=== PATIENT | female | born 1950 | race Caucasian/White ===

== ENCOUNTER → 2017-02-18 | Outpatient (CLI) | payer MEDICARE ==
[~2017-02-18] MED LIST: ALBU18HF INH; ASPI-496 PO; BIOT5TAB PO; BUDE10.2 INH; CHOL500014 PO; CITA20TA5 PO; ESTR2TAB PO; FEXO1TAB29 PO; LANS15CA45 PO; LEVO150T PO; METO50TA82 PO; MONT10TA9 PO; OLME1TAB5 PO
== END | disposition home or self-care (01) ==
LOC: CFH 08:25
PROVIDERS: ATTEND Internal Medicine Cardiovascular Disease
DX: R06.02 Shortness of breath (principal)
CPT/HCPCS: 78452; 93017; A9502

== ENCOUNTER → 2018-01-04 | Outpatient (CLI) | payer MEDICARE ==
[~2018-01-04] MED LIST changes: -CHOL500014 PO; +CHOL500045 PO; -LANS15CA45 PO; +LANS15CA60 PO; +OLME1TAB28 PO; -OLME1TAB5 PO
== END | disposition home or self-care (01) ==
LOC: CFH 12:40
PROVIDERS: ATTEND Family Medicine
DX: Z13.820 Encounter for screening for osteoporosis (principal); N95.9 Unspecified menopausal and perimenopausal disorder
CPT/HCPCS: 77080

== ENCOUNTER 2020-01-01 16:49 | Inpatient (IN) | payer MEDICARE ==
[~2020-01-01] VITALS: Ht 188 cm; Wt 98.2 kg
[2020-01-01] MEDS: SODIUM CHLORIDE 0.9% 1,000 ML IV SCH (00:35)
[~2020-01-01 16:49] MED LIST changes: -CITA20TA5 PO; +CITA20TA6 PO; +MONT10TA11 PO; -MONT10TA9 PO
[2020-01-01] MEDS ORDERED: methylPREDNISolone SOD SUCC 125 MG/2 ML IVPush STA (17:14)
[2020-01-01] MEDS ORDERED: ADENOSINE 6 MG/2 ML ONE ×3 (17:26→21:12)
[2020-01-01] MEDS ORDERED: ALBUTEROL 0.5%, 20ML NPPB SCH ×2 (17:30→18:30)
[2020-01-01] MEDS ORDERED: IPRATROPIUM 0.5 MG/2.5 ML INHA NPPB SCH (17:30)
--- NOTE | 2020-01-01 17:30 | NUR ---
PIV STARTED, LABS DRAWN.
--- NOTE | 2020-01-01 17:35 | NUR ---
THIS IS A 69 YO F W/ C/O SOBX6 WEEKS. PT PRESENTS IN SVT. 6 MG ADENOSINE GIVEN PER PHYSICIAN VERBAL ORDER. PT NOW SINUS TACH W/ A HR OF 105. PT RESPONDED WELL TO MEDS. PT CONNECTED TO ALL MONITORING. PT STILL SOB, RESP TREATMENT TO BE GIVEN. VS STABLE AT THIS TIME. NADN.
[2020-01-01] MEDS ORDERED: methylPREDNISolone SOD SUCC 125 MG/2 ML ONE (17:39)
[2020-01-01] MEDS ORDERED: MAGNESIUM SULFATE PMX 2GM/50ML 50 ML ONE (17:40)
[2020-01-01 17:46] LABS: BASOPHILS # (AUTO) 0.07 x10^3/uL (0-0.1); BASOPHILS % (AUTO) 1 % (0-1); EOSINOPHILS # (AUTO) 0.86 x10^3/uL (0-0.4); EOSINOPHILS % (AUTO) 9 % (1-7); LYMPHOCYTES # (AUTO) 1.36 x10^3/uL (1-3.4); LYMPHOCYTES % (AUTO) 14 % (22-44); MD NO; MEAN CORPUSCULAR HEMOGLOBIN 31.6 pg (27.0-34.8); MEAN CORPUSCULAR HGB CONC 33.8 g/dL (32.4-35.8); MEAN CORPUSCULAR VOLUME 93.6 fL (80-100); MEAN PLATELET VOLUME 9.3 fL (7.4-10.4); MONOCYTES # (AUTO) 0.76 x10^3/uL (0.2-0.8); MONOCYTES % (AUTO) 8 % (2-9); NEUTROPHILS # (AUTO) 6.87 x10^3/uL (1.8-6.8); NEUTROPHILS % (AUTO) 69 % (42-75); PLATELET COUNT 217 x10^3/uL (130-400); RED BLOOD COUNT 4.43 x10^6/uL (3.82-5.3)
[2020-01-01] MEDS ORDERED: ALBUTEROL SULFATE 2.5 MG/3 ML ONE (17:57)
[2020-01-01 17:58] LABS: ALANINE AMINOTRANSFERASE 48 U/L (12-78); ALBUMIN 3.5 g/dL (3.4-5.0); ANION GAP 8 mmol/L (5-15); CALCIUM 9.6 mg/dL (8.5-10.1); CHLORIDE 105 mmol/L (98-107); CREATININE 1.26 mg/dL (0.55-1.02)
[2020-01-01] MEDS ORDERED: MAGNESIUM SULFATE PMX 2GM/50ML 50 ML IV ONE (18:00)
[2020-01-01] MEDS ORDERED: ADENOSINE 6 MG/2 ML IVPush ONE ×2 (18:00→21:30)
[2020-01-01 18:03] LABS: ALKALINE PHOSPHATASE 95 U/L (45-117); BILIRUBIN,TOTAL 0.4 mg/dL (0.2-1.0); TOTAL PROTEIN 7.7 g/dL (6.4-8.2); TROPONIN I < 0.015 ng/mL (0.000-0.045)
--- NOTE | 2020-01-01 18:06 | NUR ---
CHRIS REQUESTED FROM PHARMACY.
--- NOTE | 2020-01-01 18:18 | NUR ---
EKG DONE BY VIRAL
--- NOTE | 2020-01-01 18:18 | NUR ---
ALBUTEROL BREATHING TX GIVEN.
--- NOTE | 2020-01-01 18:18 | NUR ---
SIMON GAINES MANUAL BP @ [phone]/76
[2020-01-01] MEDS ORDERED: VALS1TAB30 PO (18:25)
[2020-01-01] MEDS ORDERED: SODIUM CHLORIDE FLUSH 10ML SYR IVF ONE (18:30)
[2020-01-01] MEDS ORDERED: ALBUTEROL 0.5%, 20ML NPPBCONT STA (18:46)
[2020-01-01] MEDS ORDERED: ALBUTEROL 0.5%, 20ML ONE (18:48)
--- NOTE | 2020-01-01 18:50 | NUR ---
TELEPHONE CALL TO RESPIRATORY. STATES THEY WILL COME DO CONTINOUS RESP TREATMENT.
--- NOTE | 2020-01-01 19:01 | NUR ---
REPORT GIVEN TO ANDREW GRAHAM.
[2020-01-01] MEDS ORDERED: POLYETHYLENE GLYCOL 17 GM PACKET PO PRN (21:00)
[2020-01-01] MEDS ORDERED: GUAIFENESIN/DM 200-20MG, 10ML UDC PO PRN (21:00)
[2020-01-01] MEDS ORDERED: hydrALAzine 20 MG/ML, 1ML IVPush PRN (21:00)
[2020-01-01] MEDS ORDERED: BISACODYL 10 MG SUPP PR PRN (21:00)
[2020-01-01] MEDS ORDERED: ONDANSETRON ODT 4 MG PO PRN (21:00)
[2020-01-01] MEDS ORDERED: ACETAMINOPHEN 325 MG TABLET PO PRN (21:00)
--- NOTE | 2020-01-01 21:30 | NUR ---
CT DELAY, PT TACHY
[2020-01-01] MEDS ORDERED: LABETALOL 5MG/ML, 20ML IVPush STA (21:31)
[2020-01-01] MEDS ORDERED: DILTIAZEM 5 MG/ML, 5ML ONE (21:39)
[2020-01-01] MEDS ORDERED: DILTIAZEM 5 MG/ML, 5ML IVPush ONE (22:00)
--- NOTE | 2020-01-01 22:05 | NUR ---
PT WENT INTO SVT IN THE 170+ DR SEVILLA GAVE 12MG ADENOSINE, PT CONVERTED TO 113 SINUS TACH. PT 10 MIN LATER WENT BACK UP TO 180'S, DR PUGH WAS CALLED, HE GAVE VERBAL ORDER FOR 20MG CARDIZEM. PT WENT INTO A NSR AT 99 AFTER CARDIZEM.
[2020-01-01] MEDS ORDERED: OMNIPAQUE 350 MG/ML, 100ML BOTTLE ONE (22:41)
[2020-01-01] MEDS: LORATADINE/PSE 5/120MG TAB.ER.12H PO SCH (23:00)
--- NOTE | 2020-01-01 23:17 | NUR ---
SIMON DID 2 EKG'S BEFORE AND AFTER 12 OF ADENOSINE & TRANSPORTED TO CT AND THEN 306
[2020-01-01 23:57] LABS: TROPONIN I < 0.015 ng/mL (0.000-0.045)
[2020-01-02] MEDS: ALBUTEROL HFA 90 MCG/SPRAY INH SCH ×6 (00:29→20:22)
[2020-01-02] MEDS: DOXYCYCLINE 100 MG in DEXTROSE 5% 250 ML IV SCH ×3 (00:31→20:23)
[2020-01-02] MEDS: HEPARIN 5,000 UNITS/ML, 1ML SQ SCH ×3 (00:31→17:23)
[2020-01-02] MEDS: methylPREDNISolone SOD SUCC 125 MG/2 ML IVPush SCH ×5 (00:31→23:16)
[2020-01-02] MEDS: MONTELUKAST 10 MG TABLET PO SCH ×2 (00:32→20:22)
[2020-01-02] MEDS: FAMOTIDINE 20 MG TABLET PO SCH ×2 (00:32→09:39)
[2020-01-02] MEDS: METOPROLOL TARTRATE 50 MG TAB PO SCH ×2 (00:32→20:22)
[2020-01-02 00:45] VITALS: BP 131/77
[2020-01-02 02:00] VITALS: BP 131/77
[2020-01-02 05:59] LABS: CALCIUM 9.1 mg/dL (8.5-10.1); CHLORIDE 106 mmol/L (98-107)
[2020-01-02 06:01] LABS: BASOPHILS # (AUTO) 0.01 x10^3/uL (0-0.1); BASOPHILS % (AUTO) 0 % (0-1); EOSINOPHILS # (AUTO) 0.01 x10^3/uL (0-0.4); EOSINOPHILS % (AUTO) 0 % (1-7); LYMPHOCYTES # (AUTO) 0.58 x10^3/uL (1-3.4); LYMPHOCYTES % (AUTO) 7 % (22-44); MD NO; MEAN CORPUSCULAR HEMOGLOBIN 31.9 pg (27.0-34.8); MEAN CORPUSCULAR HGB CONC 33.7 g/dL (32.4-35.8); MEAN CORPUSCULAR VOLUME 94.7 fL (80-100); MEAN PLATELET VOLUME 9.4 fL (7.4-10.4); MONOCYTES # (AUTO) 0.06 x10^3/uL (0.2-0.8); MONOCYTES % (AUTO) 1 % (2-9); NEUTROPHILS # (AUTO) 7.29 x10^3/uL (1.8-6.8); NEUTROPHILS % (AUTO) 92 % (42-75); PLATELET COUNT 196 x10^3/uL (130-400); RED BLOOD COUNT 3.91 x10^6/uL (3.82-5.3); RED CELL DISTRIBUTION WIDTH 15.1 % (9.6-15.2)
[2020-01-02 06:07] LABS: ANION GAP 9 mmol/L (5-15); CREATININE 1.44 mg/dL (0.55-1.02); TROPONIN I < 0.015 ng/mL (0.000-0.045)
[2020-01-02] MEDS: LEVOTHYROXINE 175 MCG TABLET PO SCH (06:23)
[2020-01-02 08:08] VITALS: BP 145/82
[2020-01-02] MEDS: TEMPLATE NON-FORMULARY MED. (Biotin** 5 MG) HOMEMEDPO SCH (09:00)
[2020-01-02] MEDS ORDERED: LEVOTHYROXINE 125 MCG TABLET ONE (09:18)
[2020-01-02] MEDS ORDERED: LEVOTHYROXINE 25 MCG TABLET ONE (09:18)
[2020-01-02] MEDS: CITALOPRAM 10 MG TABLET PO SCH (09:37)
[2020-01-02] MEDS: ASPIRIN 81 MG TABLET EC PO SCH (09:39)
[2020-01-02] MEDS: VALSARTAN 320 MG TABLET PO SCH (09:39)
[2020-01-02] MEDS: CHOLECALCIFEROL 5,000u TAB PO SCH (09:39)
[2020-01-02] MEDS: LORATADINE/PSE 5/120MG TAB.ER.12H PO SCH ×2 (09:39→20:22)
[2020-01-02] MEDS: SENNA/DOCUSATE TABLET PO SCH (09:39)
[2020-01-02] MEDS: HYDROCHLOROTHIAZIDE 25 MG TABLET PO SCH (09:39)
[2020-01-02] MEDS: ESTRADIOL 2 MG TABLET PO SCH (09:39)
[2020-01-02] MEDS: FLUTICASONE/VILANTEROL 100-25MCG/INH INH SCH (09:54)
[2020-01-02] MEDS: SODIUM CHLORIDE 0.9% 1,000 ML IV SCH (09:56)
[2020-01-02 13:21] VITALS: BP 120/82
[2020-01-02 20:31] VITALS: BP 139/87
[2020-01-02] MEDS: LORazepam 0.5MG TABLET PO PRN (23:16)
[2020-01-03 00:57] VITALS: BP 148/85
[2020-01-03] MEDS: HEPARIN 5,000 UNITS/ML, 1ML SQ SCH ×3 (01:39→17:49)
[2020-01-03 03:51] LABS: ANION GAP 7 mmol/L (5-15); CALCIUM 9.1 mg/dL (8.5-10.1); CHLORIDE 106 mmol/L (98-107)
[2020-01-03 03:58] LABS: MEAN CORPUSCULAR HEMOGLOBIN 31.7 pg (27.0-34.8); MEAN CORPUSCULAR VOLUME 96.1 fL (80-100); MEAN PLATELET VOLUME 8.9 fL (7.4-10.4); PLATELET COUNT 203 x10^3/uL (130-400); RED BLOOD COUNT 3.86 x10^6/uL (3.82-5.3); RED CELL DISTRIBUTION WIDTH 15.5 % (9.6-15.2)
[2020-01-03 04:00] LABS: ALANINE AMINOTRANSFERASE 45 U/L (12-78); ALKALINE PHOSPHATASE 75 U/L (45-117); BILIRUBIN,TOTAL 0.5 mg/dL (0.2-1.0); CREATININE 1.17 mg/dL (0.55-1.02); TOTAL PROTEIN 6.8 g/dL (6.4-8.2)
[2020-01-03 04:15] LABS: BASOPHILS # (AUTO) 0.05 x10^3/uL (0-0.1); BASOPHILS % (AUTO) 0 % (0-1); EOSINOPHILS % (AUTO) 0 % (1-7); LYMPHOCYTES # (AUTO) 0.69 x10^3/uL (1-3.4); LYMPHOCYTES % (AUTO) 5 % (22-44); MD SCAN; MONOCYTES # (AUTO) 0.29 x10^3/uL (0.2-0.8); MONOCYTES % (AUTO) 2 % (2-9); NEUTROPHILS # (AUTO) 12.44 x10^3/uL (1.8-6.8); NEUTROPHILS % (AUTO) 92 % (42-75)
[2020-01-03] MEDS: ALBUTEROL HFA 90 MCG/SPRAY INH SCH ×6 (04:30→22:30)
[2020-01-03] MEDS: LEVOTHYROXINE 175 MCG TABLET PO SCH (05:59)
[2020-01-03] MEDS: methylPREDNISolone SOD SUCC 125 MG/2 ML IVPush SCH ×3 (05:59→17:48)
[2020-01-03 07:56] VITALS: BP 133/81
[2020-01-03] MEDS ORDERED: FAMOTIDINE 20 MG TABLET PO SCH (09:00)
[2020-01-03] MEDS: ESTRADIOL 2 MG TABLET PO SCH (09:01)
[2020-01-03] MEDS: SENNA/DOCUSATE TABLET PO SCH (09:01)
[2020-01-03] MEDS: CITALOPRAM 10 MG TABLET PO SCH (09:01)
[2020-01-03] MEDS: HYDROCHLOROTHIAZIDE 25 MG TABLET PO SCH (09:01)
[2020-01-03] MEDS: LORATADINE/PSE 5/120MG TAB.ER.12H PO SCH ×2 (09:02→20:01)
[2020-01-03] MEDS: CHOLECALCIFEROL 5,000u TAB PO SCH (09:02)
[2020-01-03] MEDS: ASPIRIN 81 MG TABLET EC PO SCH (09:02)
[2020-01-03] MEDS: VALSARTAN 320 MG TABLET PO SCH (09:02)
[2020-01-03] MEDS: TEMPLATE NON-FORMULARY MED. (Biotin** 5 MG) HOMEMEDPO SCH (09:07)
[2020-01-03] MEDS: FLUTICASONE/VILANTEROL 100-25MCG/INH INH SCH (09:17)
[2020-01-03] MEDS: DOXYCYCLINE 100 MG in DEXTROSE 5% 250 ML IV SCH ×2 (10:26→22:25)
[2020-01-03 13:22] VITALS: BP 147/93
[2020-01-03 19:06] VITALS: BP 146/82
[2020-01-03] MEDS: METOPROLOL TARTRATE 50 MG TAB PO SCH (20:01)
[2020-01-03] MEDS: LORazepam 0.5MG TABLET PO PRN (20:01)
[2020-01-03] MEDS: MONTELUKAST 10 MG TABLET PO SCH (20:01)
[2020-01-03] MEDS: FAMOTIDINE 20 MG TABLET PO SCH (20:01)
[2020-01-04] MEDS: methylPREDNISolone SOD SUCC 125 MG/2 ML IVPush SCH ×4 (00:52→18:21)
[2020-01-04] MEDS: HEPARIN 5,000 UNITS/ML, 1ML SQ SCH ×3 (00:52→18:24)
[2020-01-04 01:14] VITALS: BP 166/95
[2020-01-04] MEDS: ALBUTEROL HFA 90 MCG/SPRAY INH SCH ×6 (02:30→22:30)
[2020-01-04] MEDS: LEVOTHYROXINE 175 MCG TABLET PO SCH (06:12)
[2020-01-04] MEDS: LORATADINE/PSE 5/120MG TAB.ER.12H PO SCH ×2 (08:57→21:05)
[2020-01-04] MEDS: CHOLECALCIFEROL 5,000u TAB PO SCH (08:58)
[2020-01-04] MEDS: FAMOTIDINE 20 MG TABLET PO SCH ×2 (08:58→21:04)
[2020-01-04] MEDS: CITALOPRAM 10 MG TABLET PO SCH (08:58)
[2020-01-04] MEDS: ASPIRIN 81 MG TABLET EC PO SCH (08:58)
[2020-01-04] MEDS: HYDROCHLOROTHIAZIDE 25 MG TABLET PO SCH (08:58)
[2020-01-04] MEDS: FLUTICASONE/VILANTEROL 100-25MCG/INH INH SCH (08:59)
[2020-01-04] MEDS: TEMPLATE NON-FORMULARY MED. (Biotin** 5 MG) HOMEMEDPO SCH (08:59)
[2020-01-04] MEDS: ESTRADIOL 2 MG TABLET PO SCH (08:59)
[2020-01-04] MEDS: SENNA/DOCUSATE TABLET PO SCH (09:00)
[2020-01-04] MEDS: VALSARTAN 320 MG TABLET PO SCH (09:05)
[2020-01-04 09:43] VITALS: BP 116/76
[2020-01-04] MEDS: DOXYCYCLINE 100 MG in DEXTROSE 5% 250 ML IV SCH (10:41)
[2020-01-04 12:24] VITALS: BP 150/84
[2020-01-04 19:55] VITALS: BP 151/94
[2020-01-04] MEDS: DOXYCYCLINE 100MG TABLET PO SCH (21:04)
[2020-01-04] MEDS: LORazepam 0.5MG TABLET PO PRN (21:04)
[2020-01-04] MEDS: METOPROLOL TARTRATE 50 MG TAB PO SCH (21:04)
[2020-01-04] MEDS: MONTELUKAST 10 MG TABLET PO SCH (21:05)
[2020-01-05] MEDS: HEPARIN 5,000 UNITS/ML, 1ML SQ SCH ×2 (01:36→08:38)
[2020-01-05] MEDS: ALBUTEROL HFA 90 MCG/SPRAY INH SCH ×3 (01:36→10:30)
[2020-01-05] MEDS: methylPREDNISolone SOD SUCC 125 MG/2 ML IVPush SCH ×2 (01:36→08:35)
[2020-01-05 01:41] VITALS: BP 162/73
[2020-01-05] MEDS: LEVOTHYROXINE 175 MCG TABLET PO SCH (05:52)
[2020-01-05 06:22] LABS: BASOPHILS # (AUTO) 0.01 x10^3/uL (0-0.1); BASOPHILS % (AUTO) 0 % (0-1); EOSINOPHILS # (AUTO) 0.02 x10^3/uL (0-0.4); EOSINOPHILS % (AUTO) 0 % (1-7); LYMPHOCYTES # (AUTO) 0.78 x10^3/uL (1-3.4); LYMPHOCYTES % (AUTO) 8 % (22-44); MD NO; MEAN CORPUSCULAR HEMOGLOBIN 31.5 pg (27.0-34.8); MEAN CORPUSCULAR HGB CONC 33.5 g/dL (32.4-35.8); MEAN CORPUSCULAR VOLUME 94.1 fL (80-100); MEAN PLATELET VOLUME 9.4 fL (7.4-10.4); MONOCYTES # (AUTO) 0.56 x10^3/uL (0.2-0.8); MONOCYTES % (AUTO) 6 % (2-9); NEUTROPHILS # (AUTO) 8.44 x10^3/uL (1.8-6.8); NEUTROPHILS % (AUTO) 86 % (42-75); PLATELET COUNT 215 x10^3/uL (130-400); RED BLOOD COUNT 4.35 x10^6/uL (3.82-5.3); RED CELL DISTRIBUTION WIDTH 15.3 % (9.6-15.2)
[2020-01-05 06:25] LABS: ANION GAP 7 mmol/L (5-15); CALCIUM 9.6 mg/dL (8.5-10.1); CHLORIDE 102 mmol/L (98-107); CREATININE 1.15 mg/dL (0.55-1.02)
[2020-01-05 06:37] VITALS: BP_SYST 194; BP_DIAS 10; BP_DIAS 105
[2020-01-05 06:38] VITALS: BP 165/83
[2020-01-05] MEDS: ESTRADIOL 2 MG TABLET PO SCH (08:37)
[2020-01-05] MEDS: TEMPLATE NON-FORMULARY MED. (Biotin** 5 MG) HOMEMEDPO SCH (08:37)
[2020-01-05] MEDS: FLUTICASONE/VILANTEROL 100-25MCG/INH INH SCH (08:37)
[2020-01-05] MEDS: VALSARTAN 320 MG TABLET PO SCH (08:38)
[2020-01-05] MEDS: DOXYCYCLINE 100MG TABLET PO SCH (08:38)
[2020-01-05] MEDS: SENNA/DOCUSATE TABLET PO SCH (08:39)
[2020-01-05] MEDS: CITALOPRAM 10 MG TABLET PO SCH (08:39)
[2020-01-05] MEDS: LORATADINE/PSE 5/120MG TAB.ER.12H PO SCH (08:39)
[2020-01-05] MEDS: HYDROCHLOROTHIAZIDE 25 MG TABLET PO SCH (08:39)
[2020-01-05] MEDS: CHOLECALCIFEROL 5,000u TAB PO SCH (08:39)
[2020-01-05] MEDS: FAMOTIDINE 20 MG TABLET PO SCH (08:39)
[2020-01-05] MEDS: ASPIRIN 81 MG TABLET EC PO SCH (08:39)
[2020-01-05 08:58] VITALS: BP 100/64
[2020-01-05] MEDS ORDERED: DOXY100T PO (11:28)
[2020-01-05] MEDS ORDERED: METH4TAB2 PO (11:28)
== END 2020-01-05 13:07 | disposition home or self-care (01) | DRG 202 ==
LOC: ED 17:26 → EDIP 19:22 → 3WST 22:50 → 4EST 01-02 22:28
PROVIDERS: ADMIT Internal Medicine; ATTEND Hospitalist
PROC: 5A2204Z Restoration of Cardiac Rhythm, Single (ICD-10-PCS; principal; 2020-01-01)
DX: J45.41 Moderate persistent asthma with (acute) exacerbation (principal); J96.01 Acute respiratory failure with hypoxia; J44.1 Chronic obstructive pulmonary disease with (acute) exacerbation; I47.1 Supraventricular tachycardia; E07.9 Disorder of thyroid, unspecified; G62.9 Polyneuropathy, unspecified; H54.7 Unspecified visual loss; I00 Rheumatic fever without heart involvement; E03.9 Hypothyroidism, unspecified; F12.90 Cannabis use, unspecified, uncomplicated; G47.33 Obstructive sleep apnea (adult) (pediatric); I10 Essential (primary) hypertension; I71.2 Thoracic aortic aneurysm, without rupture; M19.90 Unspecified osteoarthritis, unspecified site; Z86.61 Personal history of infections of the central nervous system; Z87.891 Personal history of nicotine dependence; Z90.710 Acquired absence of both cervix and uterus; Z95.2 Presence of prosthetic heart valve; Z96.653 Presence of artificial knee joint, bilateral; Z82.3 Family history of stroke; Z03.818 Encounter for observation for suspected exposure to other biological agents ruled out
CPT/HCPCS: 36415; 71045; 71275; 80048; 80053; 82728; 83615; 83880; 84145; 84443; 84484; 85025; 85379; 86140; 93005; 93306; 94644; 96374; 96375; G0378; J0153; J1644; J7060; J7644; Q9967; J2930; J3475; J7030

== ENCOUNTER → 2020-09-17 | Outpatient (CLI) | payer MEDICARE ==
[~2020-09-17] MED LIST changes: +DOXY100T PO; +METH4TAB2 PO; -MONT10TA11 PO; +MONT10TA96 PO; +VALS1TAB30 PO
== END | disposition home or self-care (01) ==
LOC: RAD 10:11
PROVIDERS: ATTEND Family Medicine
DX: K76.0 Fatty (change of) liver, not elsewhere classified (principal); R94.5 Abnormal results of liver function studies; N95.9 Unspecified menopausal and perimenopausal disorder
CPT/HCPCS: 76705; 77080

== ENCOUNTER 2020-10-11 07:46 | Day surgery (SDC) | payer MEDICARE ==
[~2020-10-11] VITALS: Ht 188 cm; Wt 97.7 kg
[~2020-10-11 07:46] MED LIST changes: -ALBU18HF INH; +ALBU18HF NEB
[2020-10-11 09:18] VITALS: BP 133/81
[2020-10-11] MEDS ORDERED: METO25TA91 PO (09:38)
[2020-10-11] MEDS ORDERED: FOLI0.4T2 PO (09:38)
[2020-10-11] MEDS ORDERED: L.AC1CAP6 PO (09:38)
[2020-10-11] MEDS ORDERED: METF500T17 PO (09:38)
[2020-10-11] MEDS ORDERED: MAGN400T36 PO (09:38)
[2020-10-11] MEDS ORDERED: ALBU8.5H8 INH (09:38)
[2020-10-11] MEDS ORDERED: AMIT25TA PO (09:38)
[2020-10-11] MEDS ORDERED: PANT40TA6 PO (09:38)
[2020-10-11] MEDS ORDERED: SODIUM CHLORIDE 0.9% 1,000 ML IV SCH (10:00)
[2020-10-11 10:20] LABS: CHLORIDE 105 mmol/L (98-107)
[2020-10-11 10:21] LABS: BASOPHILS % (AUTO) 1 % (0-1); EOSINOPHILS % (AUTO) 3 % (1-7); LYMPHOCYTES % (AUTO) 27 % (22-44); MEAN PLATELET VOLUME 9.1 fL (7.4-10.4); MONOCYTES % (AUTO) 10 % (2-9); NEUTROPHILS % (AUTO) 58 % (42-75); PLATELET COUNT 198 x10^3/uL (130-400); RED BLOOD COUNT 4.16 x10^6/uL (3.82-5.3); RED CELL DISTRIBUTION WIDTH 13.9 % (9.6-15.2)
[2020-10-11 10:24] LABS: ANION GAP 7 mmol/L (5-15); CALCIUM 9.4 mg/dL (8.5-10.1); CREATININE 1.26 mg/dL (0.55-1.02)
[2020-10-11 10:28] LABS: MD NO
[2020-10-11] MEDS ORDERED: FENTANYL PF 100 MCG/2ML ONE (10:49)
[2020-10-11] MEDS ORDERED: LIDOCAINE 2%, 20ML ONE (10:50)
[2020-10-11] MEDS ORDERED: ADENOSINE 6 MG/2 ML ONE (10:50)
[2020-10-11] MEDS ORDERED: ISOPROTERENOL 0.2MG/ML, 5ML ONE (10:50)
[2020-10-11] MEDS ORDERED: MIDAZOLAM 1 MG/ML, 5ML ONE (10:50)
[2020-10-11] MEDS ORDERED: APIX5TAB PO (12:16)
[2020-10-11] MEDS ORDERED: APIXABAN 5 MG TABLET ONE (12:30)
[2020-10-11] MEDS ORDERED: APIXABAN 5 MG TABLET PO SCH (21:00)
== END 2020-10-11 16:35 | disposition home or self-care (01) ==
LOC: CACL 07:46
PROVIDERS: ATTEND Internal Medicine Clinical Cardiac Electrophysiology
DX: I48.92 Unspecified atrial flutter (principal); I48.91 Unspecified atrial fibrillation; I47.1 Supraventricular tachycardia; I10 Essential (primary) hypertension; E11.9 Type 2 diabetes mellitus without complications; J45.909 Unspecified asthma, uncomplicated; F12.10 Cannabis abuse, uncomplicated
CPT/HCPCS: 36415; 80048; 85025; 93613; 93620; C1730; C1769; C1894; J0153; J2250; J3010

== ENCOUNTER → 2020-10-30 | Outpatient (CLI) | payer MEDICARE ==
[~2020-10-30] MED LIST changes: +ALBU8.5H8 INH; +AMIT25TA PO; +APIX5TAB PO; +FOLI0.4T2 PO; +L.AC1CAP6 PO; +MAGN400T36 PO; +METF500T17 PO; +METO25TA91 PO; +MONT10TA17 PO; -MONT10TA96 PO; +PANT40TA6 PO
[2020-10-30 10:35] LABS: BASOPHILS % (AUTO) 1 % (0-1); EOSINOPHILS % (AUTO) 4 % (1-7); LYMPHOCYTES % (AUTO) 26 % (22-44); MEAN CORPUSCULAR HEMOGLOBIN 31.5 pg (27.0-34.8); MEAN CORPUSCULAR HGB CONC 33.2 g/dL (32.4-35.8); MEAN PLATELET VOLUME 8.5 fL (7.4-10.4); MONOCYTES % (AUTO) 11 % (2-9); NEUTROPHILS % (AUTO) 58 % (42-75); PLATELET COUNT 205 x10^3/uL (130-400); RED BLOOD COUNT 4.26 x10^6/uL (3.82-5.3); RED CELL DISTRIBUTION WIDTH 14.4 % (9.6-15.2)
[2020-10-30 10:36] LABS: MD NO
[2020-10-30 10:42] LABS: ALANINE AMINOTRANSFERASE 66 U/L (12-78); ALBUMIN 3.6 g/dL (3.4-5.0); ANION GAP 6 mmol/L (5-15); CALCIUM 9.4 mg/dL (8.5-10.1); CHLORIDE 105 mmol/L (98-107)
[2020-10-30 10:44] LABS: INTERNATIONAL NORMALIZED RATIO 1.06 (0.93-1.1); PROTHROMBIN TIME 11.3 Seconds (9.6-11.5)
[2020-10-30 10:54] LABS: ALKALINE PHOSPHATASE 98 U/L (45-117); BILIRUBIN,TOTAL 0.5 mg/dL (0.2-1.0); CHOL/HDL RATIO 2.7; CHOLESTEROL, TOTAL 219 mg/dL (140-239); CREATININE 1.32 mg/dL (0.55-1.02); HDL CHOL % 37 % (28-40); HDL CHOLESTEROL (DIRECT) 80 mg/dL (40-60); LDL CHOLESTEROL,CALCULATED 108 mg/dL (54-169); LDL/HDL RATIO 1.4 (0.5-3.0); TOTAL PROTEIN 7.3 g/dL (6.4-8.2); TRIGLYCERIDES 155 mg/dL (50-200); VLDL CHOLESTEROL 31 mg/dL (0-25)
== END | disposition home or self-care (01) ==
LOC: LAB 10:10
PROVIDERS: ATTEND Family Medicine
DX: I10 Essential (primary) hypertension (principal); I48.91 Unspecified atrial fibrillation; E11.69 Type 2 diabetes mellitus with other specified complication; E03.9 Hypothyroidism, unspecified; R94.5 Abnormal results of liver function studies
CPT/HCPCS: 36415; 80053; 80061; 80074; 82043; 83036; 84443; 85025; 85610; 85730

== ENCOUNTER → 2020-11-04 | Outpatient (CLI) | payer MEDICARE | END | disposition home or self-care (01) | LOC: STAR 08:00 | PROVIDERS: ATTEND Anesthesiology | DX: Z20.822 Contact with and (suspected) exposure to COVID-19 (principal) | CPT/HCPCS: 87635 ==

== ENCOUNTER → 2020-11-04 | Outpatient (CLI) | payer MEDICARE ==
[~2020-11-04] MED LIST changes: +OMNIPAQUE 350 MG/ML, 150 ML BOTTLE ONE
== END | disposition home or self-care (01) ==
LOC: CFH 13:22
PROVIDERS: ATTEND Internal Medicine Clinical Cardiac Electrophysiology
DX: I25.10 Atherosclerotic heart disease of native coronary artery without angina pectoris (principal); K76.0 Fatty (change of) liver, not elsewhere classified; I48.91 Unspecified atrial fibrillation; I48.92 Unspecified atrial flutter; I10 Essential (primary) hypertension
CPT/HCPCS: 71046; 75572; Q9967

== ENCOUNTER 2020-11-08 10:41 | Observation (INO) | payer MEDICARE ==
[~2020-11-08] VITALS: Ht 188 cm; Wt 97.0 kg
[~2020-11-08 10:41] MED LIST changes: -OMNIPAQUE 350 MG/ML, 150 ML BOTTLE ONE
[2020-11-08] MEDS ORDERED: SODIUM CHLORIDE 0.9% 1,000 ML IV ONE (11:30)
[2020-11-08] MEDS: PLEASE ENTER HEIGHT AND WEIGHT MC SCH ×2 (11:30→19:30)
[2020-11-08] MEDS ORDERED: SODIUM CHLORIDE 0.9% 1,000 ML IV SCH (11:30)
[2020-11-08 11:47] LABS: BASOPHILS % (AUTO) 1 % (0-1); EOSINOPHILS % (AUTO) 3 % (1-7); LYMPHOCYTES % (AUTO) 21 % (22-44); MEAN CORPUSCULAR HEMOGLOBIN 31.7 pg (27.0-34.8); MEAN CORPUSCULAR HGB CONC 34.2 g/dL (32.4-35.8); MEAN PLATELET VOLUME 8.8 fL (7.4-10.4); MONOCYTES % (AUTO) 9 % (2-9); NEUTROPHILS % (AUTO) 66 % (42-75); PLATELET COUNT 205 x10^3/uL (130-400); RED BLOOD COUNT 4.35 x10^6/uL (3.82-5.3); RED CELL DISTRIBUTION WIDTH 14.4 % (9.6-15.2)
[2020-11-08] MEDS ORDERED: AMIT25TA PO ×2 (11:49)
[2020-11-08 11:50] VITALS: BP 19/89
[2020-11-08 11:51] LABS: MD NO
[2020-11-08 11:57] LABS: ANION GAP 11 mmol/L (5-15); CALCIUM 9.5 mg/dL (8.5-10.1); CHLORIDE 104 mmol/L (98-107)
[2020-11-08 12:22] LABS: INTERNATIONAL NORMALIZED RATIO 1.05 (0.93-1.1); PROTHROMBIN TIME 11.2 Seconds (9.6-11.5)
[2020-11-08] MEDS ORDERED: FENTANYL PF 250 MCG/5ML ONE (12:43)
[2020-11-08] MEDS ORDERED: MIDAZOLAM 1 MG/ML, 2ML ONE (12:43)
[2020-11-08] MEDS ORDERED: PROPOFOL 10 MG/ML, 20ML ONE (12:45)
[2020-11-08] MEDS ORDERED: DEXAMETHASONE 4 MG/ML, 1ML ONE (12:49)
[2020-11-08] MEDS ORDERED: PHENYLEPHRINE 10 MG/ML ONE (13:17)
[2020-11-08] MEDS ORDERED: ONDANSETRON 2MG/ML, 2ML ONE (13:17)
[2020-11-08] MEDS ORDERED: ROCURONIUM 10 MG/ML,10ML ONE (13:17)
[2020-11-08] MEDS ORDERED: LIDOCAINE 2%, 20ML ONE (13:24)
[2020-11-08] MEDS ORDERED: EPHEDRINE 50 MG/ML, 1ML ONE (13:46)
[2020-11-08] MEDS ORDERED: HEPARIN 1,000 UNITS/ML, 10ML ONE ×3 (14:14→15:42)
[2020-11-08] MEDS ORDERED: FENTANYL PF 100 MCG/2ML ONE (14:41)
[2020-11-08] MEDS ORDERED: LABETALOL 5MG/ML, 20ML IV PRN (17:30)
[2020-11-08] MEDS ORDERED: OXYcodone 5 MG/5 ML ORAL.SOL UDC PO PRN (17:30)
[2020-11-08] MEDS ORDERED: EPHEDRINE 50 MG/ML, 1ML IVPush PRN (17:30)
[2020-11-08] MEDS ORDERED: ACETAMINOPHEN 325 MG TABLET PO PRN ×2 (17:30→23:00)
[2020-11-08] MEDS ORDERED: MEPERIDINE/PF 25MG/0.5ML IVPush PRN (17:30)
[2020-11-08] MEDS ORDERED: hydrALAzine 20 MG/ML, 1ML IV PRN (17:30)
[2020-11-08] MEDS ORDERED: FENTANYL PF 100 MCG/2ML IV PRN (17:30)
[2020-11-08] MEDS ORDERED: PROMETHAZINE 25 MG/ML, 1ML IVPush PRN (17:30)
[2020-11-08] MEDS ORDERED: DIAZEPAM 5 MG/ML, 2ML IVPush PRN (17:30)
[2020-11-08] MEDS ORDERED: ONDANSETRON 2MG/ML, 2ML IVPush PRN (17:30)
[2020-11-08] MEDS ORDERED: PROMETHAZINE 12.5 MG SUPP PR PRN (17:30)
[2020-11-08] MEDS ORDERED: HYDROmorphone 1 MG/ML, 1ML INJ IVPush PRN (17:30)
[2020-11-08] MEDS ORDERED: MIDAZOLAM 1 MG/ML, 2ML IV PRN (17:30)
[2020-11-08] MEDS ORDERED: DIPHENHYDRAMINE 50 MG/ML, 1ML IVPush PRN (17:30)
[2020-11-08] MEDS ORDERED: ALBUTEROL SULFATE 2.5 MG/3 ML NPPB PRN (17:30)
[2020-11-08] MEDS ORDERED: APIXABAN 5 MG TABLET ONE (17:41)
[2020-11-08] MEDS ORDERED: APIXABAN 5 MG TABLET PO ONE (18:00)
[2020-11-08] MEDS: metFORMIN 500 MG TABLET PO SCH (21:00)
[2020-11-08] MEDS: APIXABAN 5 MG TABLET PO SCH (22:38)
[2020-11-08] MEDS: COLCHICINE 0.6 MG CAPSULE PO SCH (22:38)
[2020-11-08] MEDS: HYDROcodone/APAP 5/325 TABLET PO PRN (23:12)
[2020-11-09 01:10] VITALS: BP 113/73
[2020-11-09] MEDS: PLEASE ENTER HEIGHT AND WEIGHT MC SCH ×2 (01:40→11:30)
[2020-11-09] MEDS: HYDROcodone/APAP 5/325 TABLET PO PRN (03:33)
[2020-11-09] MEDS ORDERED: LEVOTHYROXINE 150 MCG TABLET PO SCH (06:00)
[2020-11-09] MEDS ORDERED: LOSARTAN 100 MG TAB PO SCH (09:00)
[2020-11-09] MEDS ORDERED: HYDROCHLOROTHIAZIDE 25 MG TABLET PO SCH (09:00)
[2020-11-09] MEDS ORDERED: METOPROLOL SUCCINATE 100 MG TAB.ER.24H PO SCH (09:00)
[2020-11-09] MEDS ORDERED: CITALOPRAM 10 MG TABLET PO SCH (09:00)
[2020-11-09] MEDS ORDERED: PANTOPRAZOLE 40MG TABLET PO SCH (09:00)
[2020-11-09] MEDS: COLCHICINE 0.6 MG CAPSULE PO SCH (09:12)
[2020-11-09] MEDS: metFORMIN 500 MG TABLET PO SCH (09:12)
[2020-11-09] MEDS: APIXABAN 5 MG TABLET PO SCH (09:12)
[2020-11-09 09:19] VITALS: BP 115/76
[2020-11-09] MEDS ORDERED: COLC0.6C3 PO (09:25)
[2020-11-09] MEDS ORDERED: ACET325T26 PO (09:25)
== END 2020-11-09 12:29 | disposition home or self-care (01) ==
LOC: CACL 10:41 → EDIP 17:20 → 5SO 18:47
PROVIDERS: ADMIT Internal Medicine Clinical Cardiac Electrophysiology; ATTEND Internal Medicine Clinical Cardiac Electrophysiology
DX: I48.0 Paroxysmal atrial fibrillation (principal); I48.92 Unspecified atrial flutter; I10 Essential (primary) hypertension; E03.9 Hypothyroidism, unspecified; E78.2 Mixed hyperlipidemia; J44.9 Chronic obstructive pulmonary disease, unspecified; E11.9 Type 2 diabetes mellitus without complications; F10.10 Alcohol abuse, uncomplicated; F12.10 Cannabis abuse, uncomplicated; Z79.01 Long term (current) use of anticoagulants; Z79.899 Other long term (current) drug therapy; Z87.891 Personal history of nicotine dependence
CPT/HCPCS: 36415; 80048; 85025; 85347; 85610; 85730; 93005; 93306; 93312; 93321; 93325; 93613; 93656; 93657; 93662; C1730; C1732; C1759; C1766; C1893; C1894; G0378; J1100; J1644; J2250; J2370; J2405; J2704; J3010; J3490; 87635

== ENCOUNTER 2021-06-03 09:22 | Outpatient (CLI) | payer MEDICARE ==
[~2021-06-03 09:22] MED LIST changes: +ACET325T26 PO; +COLC0.6C3 PO; -FOLI0.4T2 PO; +FOLI0.4T5 PO; +LANS15CA53 PO; -LANS15CA60 PO
== END 2021-06-03 23:59 | disposition home or self-care (01) ==
LOC: CVU 09:22
PROVIDERS: ATTEND Family Medicine
DX: I83.91 Asymptomatic varicose veins of right lower extremity (principal)
CPT/HCPCS: 93971